=== PATIENT | female | born 1995 | race African-American/Black ===

== ENCOUNTER 2019-09-07 18:14 | Emergency (ER) | payer OTHER ==
[~2019-09-07] VITALS: Ht 170.2 cm; Wt 90.7 kg
[2019-09-07] MEDS ORDERED: LISINOPRIL-HCT1 EAC2 PO (18:25)
[2019-09-07 18:42] LABS: URINE BILIRUBIN NEGATIVE (Negative); URINE BLOOD NEGATIVE (Negative); URINE CLARITY CLEAR; URINE COLOR YELLOW; URINE GLUCOSE-RANDOM* NEGATIVE (Negative); URINE KETONES NEGATIVE (Negative); URINE LEUKOCYTES-REFLEX TRACE (Negative); URINE NITRITE-REFLEX NEGATIVE (Negative); URINE PROTEIN (DIPSTICK) NEGATIVE (Negative); URINE SPECIFIC GRAVITY >= 1.030 (1.005-1.035); URINE UROBILINOGEN 0.2 E.U./dl (0.2-1.0)
[2019-09-07] MEDS ORDERED: SUPER THERAVIT1 EACH PO (18:57)
[2019-09-07 19:34] LABS: HEMOGLOBIN 10.5 gm/dL (12.0-15.0); MCH 18.5 pg (26.0-34.0); MCHC 30.9 g/dL (28.0-37.0); MCV 59.9 fL (80.0-100.0); PLATELET COUNT 318 thou/uL (150-400); RBC 5.66 mil/uL (4.20-5.00); RDW 19.8 % (10.5-14.5); WBC 9.6 thou/uL (4.0-11.0)
[2019-09-07 19:42] LABS: CALCIUM 9.1 mg/dL (8.5-10.1); POTASSIUM 3.7 mmol/L (3.5-5.1)
[2019-09-07 20:31] LABS: ABSOLUTE NEUTROPHILS 6.7 thou/uL (1.4-8.2); ANISOCYTOSIS 2+; MICROCYTES 2+
[2019-09-07 20:32] LABS: HYPOCHROMASIA 2+; POIKILOCYTOSIS SLIGHT; POLYCHROMASIA OCCASIONAL
[2019-09-07] MEDS ORDERED: FLAGYL500 M1 PO (20:43)
[2019-09-07] MEDS ORDERED: NORCO 5-325 TA1 EAC2 PO (21:07)
[2019-09-07 21:30] VITALS: BP 125/85
== END 2019-09-07 21:30 | disposition home or self-care (01) ==
LOC: ER 18:14
PROVIDERS: Physician Assistant
DX: A59.01 Trichomonal vulvovaginitis (principal); R10.2 Pelvic and perineal pain; I10 Essential (primary) hypertension; Z79.899 Other long term (current) drug therapy

== ENCOUNTER 2019-11-26 19:19 | Emergency (ER) | payer OTHER ==
[~2019-11-26] VITALS: Ht 170.2 cm; Wt 90.7 kg
[~2019-11-26 19:19] MED LIST: FLAGYL500 M1 PO; LISINOPRIL-HCT1 EAC2 PO; NORCO 5-325 TA1 EAC2 PO; SUPER THERAVIT1 EACH PO
[2019-11-26 20:03] LABS: URINE BILIRUBIN NEGATIVE (Negative); URINE BLOOD NEGATIVE (Negative); URINE CLARITY CLEAR; URINE COLOR YELLOW; URINE GLUCOSE-RANDOM* NEGATIVE (Negative); URINE KETONES TRACE (Negative); URINE LEUKOCYTES-REFLEX TRACE (Negative); URINE NITRITE-REFLEX NEGATIVE (Negative); URINE PROTEIN (DIPSTICK) NEGATIVE (Negative); URINE SPECIFIC GRAVITY >= 1.030 (1.005-1.035)
[2019-11-26 21:28] VITALS: BP 131/87
[2019-11-26 21:34] LABS: HEMATOCRIT 28.5 % (37.0-47.0); HEMOGLOBIN 8.7 gm/dL (12.0-15.0); MCH 18.5 pg (26.0-34.0); MCHC 30.7 g/dL (28.0-37.0); MCV 60.3 fL (80.0-100.0); PLATELET COUNT 250 thou/uL (150-400); RBC 4.72 mil/uL (4.20-5.00); RDW 18.9 % (10.5-14.5); WBC 6.6 thou/uL (4.0-11.0)
[2019-11-26 21:51] LABS: CALCIUM 8.7 mg/dL (8.5-10.1); CREATININE 0.9 mg/dL (0.6-1.0); POTASSIUM 4.6 mmol/L (3.5-5.1)
[2019-11-26 21:58] LABS: ALBUMIN 3.9 g/dL (3.4-5.0); TOTAL BILIRUBIN 0.4 mg/dL (0.2-1.0); TOTAL PROTEIN 8.4 g/dL (6.4-8.2)
[2019-11-26 22:22] LABS: ABSOLUTE NEUTROPHILS 3.7 thou/uL (1.4-8.2); ANISOCYTOSIS 1+; HYPOCHROMASIA 1+; LARGE PLATELETS OCCASIONAL; MICROCYTES 2+
== END 2019-11-26 21:55 | disposition home or self-care (01) ==
LOC: ER 19:19
PROVIDERS: Physician Assistant
DX: R10.31 Right lower quadrant pain (principal); N93.9 Abnormal uterine and vaginal bleeding, unspecified; I10 Essential (primary) hypertension; Z79.899 Other long term (current) drug therapy